=== PATIENT | female | born 1990 | race Caucasian/White ===

== ENCOUNTER → 2018-09-04 20:03 | Outpatient (CLI) | payer MEDICAID, SELFPAY | PROVIDERS: Referring Provider Registered Nurse; Visit Provider Registered Nurse | DX: F51.3 Sleepwalking [somnambulism] (principal); G47.53 Recurrent isolated sleep paralysis | CPT/HCPCS: 95810 ==

== ENCOUNTER → 2018-09-05 06:30 | Outpatient (CLI) | payer MEDICAID, SELFPAY | PROVIDERS: Referring Provider Registered Nurse; Visit Provider Registered Nurse | DX: G47.53 Recurrent isolated sleep paralysis (principal); F51.3 Sleepwalking [somnambulism] ==